=== PATIENT | female | born 1955 | race Caucasian/White ===

== ENCOUNTER 2019-06-03 11:13 | Inpatient (IN) | payer SELFPAY ==
[~2019-06-03] VITALS: Ht 165.1 cm; Wt 104.5 kg
--- NOTE | 2019-06-03 12:32 | NUR ---
Assumed care of patient. Patient ambulated to room with steady gait, present. Patient don gown and placed on security monitor.
[2019-06-03 12:38] LABS: BASOPHILS # (AUTO) 0.1 X10'3 (0-0.2); BASOPHILS % (AUTO) 0.8 % (0-1); EOSINOPHILS # (AUTO) 0.2 X10'3 (0-0.9); EOSINOPHILS % (AUTO) 2.5 % (0-6); HEMATOCRIT 40.7 % (35.0-45.0); HEMOGLOBIN 13.8 g/dl (12.0-16.0); LYMPHOCYTES # (AUTO) 0.9 X10'3 (1.1-4.8); LYMPHOCYTES % (AUTO) 13.7 % (21-51); MEAN CORPUSCULAR HEMOGLOBIN 30.4 PG (27.0-31.0); MEAN CORPUSCULAR HGB CONC 33.9 g/dL (33.0-36.5); MEAN CORPUSCULAR VOLUME 89.7 FL (78-98); MEAN PLATELET VOLUME 8.5 FL (7.4-10.4); MONOCYTES # (AUTO) 0.5 X10'3 (0-0.9); MONOCYTES % (AUTO) 7.6 % (2-12); NEUTROPHILS # (AUTO) 5.1 X10'3 (1.8-7.7); NEUTROPHILS % (AUTO) 75.4 % (42-75); PLATELET COUNT 252 X10'3 (140-440); RED BLOOD COUNT 4.54 X10'6 (4.20-5.60); RED CELL DISTRIBUTION WIDTH 12.6 % (11.5-14.5); WHITE BLOOD COUNT 6.8 X10'3 (4.5-11.0)
[2019-06-03 12:59] LABS: ALANINE AMINOTRANSFERASE 24 U/L (12-78); ALBUMIN 3.9 G/DL (3.4-5.0); ALBUMIN/GLOBULIN RATIO 1.1 (1.1-1.5); ALKALINE PHOSPHATASE 64 IU/L (46-116); ANION GAP 9 (8-16); ASPARTATE AMINO TRANSFERASE 14 U/L (10-37); BILIRUBIN,TOTAL 0.3 MG/DL (0.1-1.0); BLOOD UREA NITROGEN 10 MG/DL (7-18); BUN/CREATININE RATIO 11.2 (6.6-38.0); CALCIUM 8.9 MG/DL (8.5-10.1); CHLORIDE 106 MMOL/L (99-107); CREATININE 0.89 MG/DL (0.40-0.90); GLUCOSE 109 MG/DL (70-104); POTASSIUM 4.3 MMOL/L (3.5-5.1); SODIUM 141 MMOL/L (135-145); TOTAL CARBON DIOXIDE 26.2 MMOL/L (24-32); TOTAL PROTEIN 7.6 G/DL (6.4-8.2); eGFR 64 ML/MIN
--- NOTE | 2019-06-03 13:01 | NUR ---
Ramy Bender reports that patient is a level 2 stroke alert. Status changed and primary RN informed.
[2019-06-03] MEDS ORDERED: normal saline 1000ML IV soln IVB ONE (13:05)
[2019-06-03] MEDS ORDERED: THY60T PO (14:07)
[2019-06-03] MEDS ORDERED: RAMI5CAP65 PO (14:07)
--- NOTE | 2019-06-03 14:21 | NUR ---
Lights dimmed per patient request due to visual sensitivity. Patient sitting up in bed, at bedside.
--- NOTE | 2019-06-03 14:44 | NUR ---
Patient ambulated to restroom with steady gait. Urine sample collected and sent to lab.
--- NOTE | 2019-06-03 15:09 | NUR ---
Hospitalist at bedside.
[2019-06-03] MEDS ORDERED: magnesium hydroxide 30ml (MOM) UD suspension PO PRN (15:30)
[2019-06-03] MEDS ORDERED: acetaminophen 325mg tablet PO PRN ×2 (15:30)
[2019-06-03] MEDS ORDERED: magnesium 4gm in 100ml NS 100 ML IV PRN (15:30)
[2019-06-03] MEDS ORDERED: ondansetron/PF 4mg/2ml inj IV PRN (15:30)
[2019-06-03] MEDS ORDERED: potassium CL 10mEq/100ml bag 100 ML IV PRN ×2 (15:30)
[2019-06-03] MEDS ORDERED: magnesium 2GM in 50ml NS 50 ML IV PRN (15:30)
[2019-06-03] MEDS ORDERED: HYDROcodone/acetaminophen 5mg/325mg tablet PO PRN (15:30)
[2019-06-03] MEDS ORDERED: HYDROcodone/acetaminophen 10/325mg tab PO PRN (15:30)
[2019-06-03] MEDS ORDERED: potassium Cl 20 mEq SR tablet PO PRN ×2 (15:30)
[2019-06-03] MEDS ORDERED: metoclopramide 5 mg/ml inj IV PRN (15:30)
[2019-06-03] MEDS ORDERED: acetaminophen 650mg rectal suppository RC PRN (15:30)
[2019-06-03] MEDS ORDERED: bisacodyl 10mg suppository rectal RC PRN (15:30)
[2019-06-03] MEDS ORDERED: magnesium Cl slow-release 64mg tablet PO PRN (15:30)
[2019-06-03] MEDS ORDERED: mag hydrox/Alum hydrox/simeth 30ml oral suspension PO PRN (15:30)
[2019-06-03 16:03] LABS: PARTIAL THROMBOPLASTIN TIME 27 SECONDS (22-32)
[2019-06-03 16:12] LABS: HEMOGLOBIN A1C 5.4 % (4.5-6.2)
--- NOTE | 2019-06-03 16:28 | NUR ---
MRI screen form complete and faxed to MRI. Vascular at bedside.
[2019-06-03 17:14] VITALS: BP 170/102
[2019-06-03 18:00] VITALS: BP 159/92
[2019-06-03] MEDS: K and/or MAG REPLACEMENT MC SCH (20:00)
[2019-06-03] MEDS: docusate sod 100mg capsule PO SCH (20:00)
[2019-06-03] MEDS ORDERED: temazepam 15mg capsule PO PRN (21:00)
[2019-06-03] MEDS ORDERED: lisinopril 5mg tablet PO SCH (21:55)
[2019-06-03 22:00] VITALS: BP 169/89
--- NOTE | 2019-06-03 23:23 | NUR ---
Pt wanted her medication retimed for HS, although the pt is admitted for Stroke Alert and protocol is to keep the BP permissively high until the Pt MRI is read and Stroke is ruled out. We have educated the pt r/t this and she is OK with it and understands. We will continue to monitor BP.
[2019-06-04 05:55] LABS: BASOPHILS # (AUTO) 0.1 X10'3 (0-0.2); BASOPHILS % (AUTO) 1.3 % (0-1); EOSINOPHILS # (AUTO) 0.3 X10'3 (0-0.9); EOSINOPHILS % (AUTO) 4.1 % (0-6); HEMATOCRIT 38.4 % (35.0-45.0); HEMOGLOBIN 13.2 g/dl (12.0-16.0); LYMPHOCYTES # (AUTO) 1.5 X10'3 (1.1-4.8); LYMPHOCYTES % (AUTO) 23.9 % (21-51); MEAN CORPUSCULAR HEMOGLOBIN 30.6 PG (27.0-31.0); MEAN CORPUSCULAR HGB CONC 34.4 g/dL (33.0-36.5); MEAN CORPUSCULAR VOLUME 89.1 FL (78-98); MEAN PLATELET VOLUME 8.5 FL (7.4-10.4); MONOCYTES # (AUTO) 0.5 X10'3 (0-0.9); MONOCYTES % (AUTO) 8.3 % (2-12); NEUTROPHILS % (AUTO) 62.4 % (42-75); PLATELET COUNT 221 X10'3 (140-440); RED BLOOD COUNT 4.31 X10'6 (4.20-5.60); RED CELL DISTRIBUTION WIDTH 12.6 % (11.5-14.5); WHITE BLOOD COUNT 6.5 X10'3 (4.5-11.0)
[2019-06-04 06:00] VITALS: BP 131/78
--- NOTE | 2019-06-04 06:15 | NUR ---
Patient in room [facility]013. I have received report from ALEKSANDRA BRITO and had the opportunity to ask questions and assume patient care.
[2019-06-04 06:23] LABS: ALANINE AMINOTRANSFERASE 21 U/L (12-78); ALBUMIN 3.5 G/DL (3.4-5.0); ALBUMIN/GLOBULIN RATIO 1.1 (1.1-1.5); ALKALINE PHOSPHATASE 58 IU/L (46-116); ANION GAP 8 (8-16); ASPARTATE AMINO TRANSFERASE 14 U/L (10-37); BILIRUBIN,TOTAL 0.5 MG/DL (0.1-1.0); BLOOD UREA NITROGEN 11 MG/DL (7-18); BUN/CREATININE RATIO 12.9 (6.6-38.0); CALCIUM 8.2 MG/DL (8.5-10.1); CHLORIDE 108 MMOL/L (99-107); CHOL/HDL RATIO 2.8 (0.00-4.99); CHOLESTEROL 154 MG/DL (0-200); CREATININE 0.85 MG/DL (0.40-0.90); GLUCOSE 97 MG/DL (70-104); HDL CHOLESTEROL 55 MG/DL (35-60); LDL CHOLESTEROL 86 MG/DL (50-100); PHOSPHORUS 3.2 MG/DL (2.3-4.5); POTASSIUM 3.9 MMOL/L (3.5-5.1); SODIUM 143 MMOL/L (135-145); TOTAL CARBON DIOXIDE 26.7 MMOL/L (24-32); TOTAL PROTEIN 6.8 G/DL (6.4-8.2); TRIGLYCERIDES 94 MG/DL (20-135); eGFR 68 ML/MIN
--- NOTE | 2019-06-04 06:32 | NUR ---
Report given to dao Casiano.
[2019-06-04] MEDS: K and/or MAG REPLACEMENT MC SCH (07:44)
[2019-06-04] MEDS: docusate sod 100mg capsule PO SCH (07:49)
[2019-06-04] MEDS ORDERED: lisinopril 5mg tablet PO SCH (08:00)
[2019-06-04] MEDS ORDERED: thyroid, pork 30mg tablet PO SCH (08:00)
[2019-06-04] MEDS ORDERED: aspirin 325mg tablet PO SCH (08:30)
[2019-06-04] MEDS ORDERED: amLODIPine 5mg tablet PO SCH (08:35)
[2019-06-04] MEDS ORDERED: ASPI-611 PO (09:33)
[2019-06-04] MEDS ORDERED: AMLO10TA PO (09:33)
[2019-06-04 10:00] VITALS: BP 141/92
== END 2019-06-04 10:27 | disposition home or self-care (01) | DRG 304 ==
LOC: ER 11:13 → ED HOLD 15:30 → ORTHO 4S 16:58
PROVIDERS: ADMIT Family Medicine; ATTEND Family Medicine
DX: I16.0 Hypertensive urgency (principal); K27.4 Chronic or unspecified peptic ulcer, site unspecified, with hemorrhage; G45.9 Transient cerebral ischemic attack, unspecified; R47.01 Aphasia; E03.9 Hypothyroidism, unspecified; G43.909 Migraine, unspecified, not intractable, without status migrainosus; I10 Essential (primary) hypertension; I34.1 Nonrheumatic mitral (valve) prolapse; Z96.652 Presence of left artificial knee joint; Z90.710 Acquired absence of both cervix and uterus; T39.395A Adverse effect of other nonsteroidal anti-inflammatory drugs [NSAID], initial encounter; Z79.899 Other long term (current) drug therapy
CPT/HCPCS: 36415; 70450; 70544; 70551; 71045; 80053; 80061; 83036; 83735; 84100; 84443; 84484; 85025; 85610; 85730; 87081; 93306; 96360; 99285; G0378